=== PATIENT | female | born 1995 | race Caucasian/White ===

== ENCOUNTER 2019-03-10 17:58 | Emergency (ER) | payer BC ==
[2019-03-10] MEDS ORDERED: LIDOCAINE 1% INJ-PF (10 MG/ML) 30 ML SDV INFIL ONE (19:01)
--- NOTE | 2019-03-10 19:02 | ER Document Report ---
HPI - HPI Time Seen by Provider: 03/10/19 18:20 Pain Level: 3 Notes: 23-year-old female patient presenting with injury to her left third digit nail. She states she was putting on her jacket when she accidentally hit a wall in the acrylic nail got lifted up from her finger. She states the acrylic nail in her regular nail or hanging by one side. She reports all immunizations up-to-date. - REPRODUCTIVE Reproductive: DENIES: : Past Medical History - General Information source: Patient - Social History Smoking Status: Never Smoker Chew tobacco use (# tins/day): No Frequency of alcohol use: None Drug Abuse: None Family History: Reviewed & Not Pertinent Patient has suicidal ideation: No Patient has homicidal ideation: No - Medical History Medical History: Negative Surgical Hx: Negative Vertical Provider Document - CONSTITUTIONAL Notes: PHYSICAL EXAMINATION: GENERAL: Well-appearing, well-nourished and in no acute distress. HEAD: Atraumatic, normocephalic. EYES: Pupils equal round extraocular movements intact, conjunctiva are normal. ENT: Nares patent NECK: Normal range of motion LUNGS: No respiratory distress Musculoskeletal: Normal range of motion NEUROLOGICAL: Normal speech, normal gait. PSYCH: Normal mood, normal affect. SKIN: Left third digit nail dislodged. - INFECTION CONTROL TRAVEL OUTSIDE OF THE [place] IN LAST 30 DAYS: Yes COUNTRY TRAVELED TO/FROM: [place] Course - Re-evaluation Re-evalutation: Digital block performed, nail removed without difficulty. Patient tolerated well. Sterile dressing applied. - Vital Signs Vital signs: Temp Pulse Resp BP Pulse Ox 98.3 F 99 16 138/85 H 97 03/10/19 18:06 03/10/19 18:06 03/10/19 18:06 03/10/19 18:06 03/10/19 18:06 Discharge - Discharge Clinical Impression: Nail avulsion Condition: Stable Disposition: HOME, SELF-CARE Additional Instructions: Avulsed Nail You have had a nail avulsion. The nail will regrow, usually with no deformity. The complete process of regrowth takes about three months. (Toenails take about twice as long as fingernails.) Your new nail will be thin and easily injured for about a year. The nail bed (the tissue beneath the nail) will be oozy and tender for about ten days. During this time, it will need protection with bandages. The dressings should be changed every day, or whenever wet or dirty. A small amount of ointment directly on the nail bed can keep dressings from sticking. After early healing (five or six days), you'll want to dry out the nail bed. This is usually done with epsom soaks followed by air exposure. When the nail bed has formed a tough, dry, and non-tender membrane, you may stop dressing it. If redness, swelling, increasing tenderness, drainage, or tender lumps in the groin or armpit above the avulsion occur, call the doctor at once.
[2019-03-10 21:14] VITALS: BP 121/88
== END 2019-03-10 21:13 | disposition home or self-care (01) ==
LOC: ER 17:58
PROC: 3E0T3GC Introduction of Other Therapeutic Substance into Peripheral Nerves and Plexi, Percutaneous Approach (ICD-10-PCS; principal; 2019-03-10)
DX: S61.303A Unspecified open wound of left middle finger with damage to nail, initial encounter (principal); W22.8XXA Striking against or struck by other objects, initial encounter
CPT/HCPCS: 99283; 64455; J3490